=== PATIENT | female | born 1975 | race Caucasian/White ===

== ENCOUNTER → 2016-11-11 | Outpatient (CLI) | payer OTHER ==
[~2016-11-11] MED LIST: ACET-1256 PO; BUPR-79 PO; CEPH500C2 PO; GABA-113 PO; META-38 PO
== END | disposition home or self-care (01) ==
LOC: C.PAPS 12:57
PROVIDERS: ATTEND Physician Assistant
DX: Z12.4 Encounter for screening for malignant neoplasm of cervix (principal)

== ENCOUNTER → 2016-11-11 | Outpatient (CLI) | payer OTHER ==
--- NOTE | 2016-11-11 12:43 | MAMMOGRAPHY REPORT ---
BILATERAL DIGITAL SCREENING MAMMOGRAM TOMOSYNTHESIS WITH CAD: 11/11/2016 CLINICAL HISTORY: Routine screening. Patient has no complaints. TECHNIQUE: Breast tomosynthesis in addition to standard 2D mammography was performed. Current study was also evaluated with a Computer Aided Detection (CAD) system. COMPARISON: Comparison is made to exam dated: 11/10/2015 mammogram - [facility]. BREAST COMPOSITION: The tissue of both breasts is almost entirely fatty. FINDINGS: No suspicious masses, calcifications, or areas of architectural distortion are noted in e ither breast. There has been no significant interval change compared to prior exams. IMPRESSION: ACR BI-RADS CATEGORY 1: NEGATIVE There is no mammographic evidence of malignancy. A 1 year screening mammogram is recommended. The p atient will receive written notification of the results. Approximately 10% of breast cancers are not detected with mammography. A negative mammographic repor t should not delay biopsy if a clinically suggestive mass is present. Ariela Shipley M.D. ah/:11/11/2016 12:11:24 Aircraft Painter: Barbara NICHOLSON(Linda)(M), [facility] letter sent: Normal 1/2 BI-RADS Code: ACR BI-RADS Category 1: Negative
== END ==
LOC: C.MAMM 08:36
PROVIDERS: ATTEND Obstetrics & Gynecology
DX: Z12.31 Encounter for screening mammogram for malignant neoplasm of breast (principal)

== ENCOUNTER → 2017-10-28 | Outpatient (CLI) | payer OTHER ==
[2017-10-28 11:43] LABS: BASO % 0.7 %; BASO ABS # 0.05 K/uL (0-0.2); EOS % 4.2 %; EOS ABS # 0.32 K/uL (0-0.5); HEMATOCRIT 43.2 % (37-47); HEMOGLOBIN 14.6 g/dL (12.0-16.0); IG# 0.08 K/uL (0.00-0.02); LYMPH % 23.1 %; LYMPH ABS # 1.77 K/uL (1.2-3.4); MEAN CELL VOLUME 97.5 fL (80-100); MEAN CORPUSCULAR HGB CONC 33.8 g/dl (32-36); MONO % 7.3 %; MONO ABS # 0.56 K/uL (0.11-0.59); NEUT % 63.7 %; NEUT ABS # 4.87 K/uL (1.4-6.5); PLATELET COUNT 220 K/uL (130-400); RED CELL DISTRIBUTION WIDTH CV 12.3 % (11.5-14.5); RED CELL DISTRIBUTION WIDTH SD 43.8 fL (36.4-46.3); WHITE BLOOD COUNT 7.65 K/uL (4.8-10.8)
[2017-10-28 12:09] LABS: BLOOD UREA NITROGEN 13 mg/dl (7-18); CALCIUM 8.7 mg/dl (8.5-10.1); CARBON DIOXIDE 30 mmol/L (21-32); CREATININE 0.69 mg/dl (0.60-1.20); GLUCOSE 84 mg/dl (70-99); POTASSIUM 3.8 mmol/L (3.5-5.1); SODIUM 135 mmol/L (136-145)
== END | disposition home or self-care (01) ==
LOC: C.LAB 11:07
PROVIDERS: ATTEND Nurse Practitioner Adult Health
DX: I10 Essential (primary) hypertension (principal); R63.5 Abnormal weight gain; R53.83 Other fatigue; F41.8 Other specified anxiety disorders

== ENCOUNTER → 2018-01-11 | Outpatient (CLI) | payer OTHER ==
--- NOTE | 2018-01-15 12:41 | MAMMOGRAPHY REPORT ---
BILATERAL DIGITAL SCREENING MAMMOGRAM TOMOSYNTHESIS WITH CAD: 01/11/2018 CLINICAL HISTORY: Routine screening. Patient has no complaints. TECHNIQUE: Breast tomosynthesis in addition to standard 2D mammography was performed. Current study was also evaluated with a Computer Aided Detection (CAD) system. COMPARISON: Comparison is made to exams dated: 11/11/2016 mammogram and 11/10/2015 mammogram - [facility]. BREAST COMPOSITION: The tissue of both breasts is almost entirely fatty. FINDINGS: No suspicious masses, calcifications, or areas of architectural distortion are noted in ei ther breast. There has been no significant interval change compared to prior exams. IMPRESSION: ACR BI-RADS CATEGORY 1: NEGATIVE There is no mammographic evidence of malignancy. A 1 year screening mammogram is recommended. The pa tient will receive written notification of the results. Approximately 10% of breast cancers are not detected with mammography. A negative mammographic report should not delay biopsy if a clinically suggestive mass is present. Ariela Shipley M.D. ah/:01/11/2018 15:21:08 Compliance Coordinator: Bessy NICHOLSON(Linda)(Juan Ramon), [facility] letter sent: Normal 1/2 BI-RADS Code: ACR BI-RADS Category 1: Negative
== END | disposition home or self-care (01) ==
LOC: C.MAMM 14:15
PROVIDERS: ATTEND Obstetrics & Gynecology
DX: Z12.31 Encounter for screening mammogram for malignant neoplasm of breast (principal)

== ENCOUNTER 2025-07-19 19:29 | Observation (INO) ==
[2025-07-19] MEDS: SODIUM CHLORIDE 0.9% 1,000 ML IV SCH (20:07)
[2025-07-19] MEDS: ACETAMINOPHEN 1,000 MG/100 ML VIAL IV STA (20:08)
[2025-07-19] MEDS: ONDANSETRON INJ 2 MG/ML 2 ML VIAL IV STA (20:09)
[2025-07-19] MEDS: KETOROLAC TROMETHAMINE 15 MG/ML VIAL IV STA (20:10)
[2025-07-19] MEDS: dexAMETHasone**PF** 10 MG/ML VIAL IV ONE (20:12)
[2025-07-19 20:13] LABS: Hematocrit (blood only) 38.8 % (37.0-47.0); Hemoglobin 13.2 g/dl (12.0-16.0); Immature Granulocytes # (auto) 0.29 K/uL (0.01-0.20); Immature Granulocytes % (auto) 2.2 %; Mean Corpuscular Hemoglobin 32.5 pg (25.0-34.0); Mean Corpuscular Volume 95.6 fL (80.0-100.0); Platelet Count 322 K/uL (130-400); RDW Standard Deviation 42.1 fL (36.4-46.3); Red Blood Count 4.06 M/uL (4.20-5.40); White Blood Count 13.10 K/ul (4.8-10.8)
--- NOTE | 2025-07-19 20:19 | Emergency Department Note ---
Impression & Plan Peritonsillar abscess, Hypertension, Leukocytosis, Difficulty swallowing, Acute streptococcal pharyngitis ED Provider Note NAME: CAMILLE MICHAEL AGE: 49 SEX: F : 1975 ARRIVES VIA: Walk-In INFORMANT: [Patient] ED PROVIDER(S): [Gigi Irizarry MD] CHIEF COMPLAINT: Illness HISTORY OF PRESENT ILLNESS: The patient is a 49-year-old female who thought she had a cold and a bit of a sore throat over a week ago. Things seemed to be getting better but, last evening she began having increased pain in the throat especially on the right- hand side. Things have progressed to the point where she has a very hard time swallowing. She is concerned that she may have a peritonsillar abscess as she has had an abscess in the past. There has been no cough or shortness of breath. No diarrhea or vomiting. She has not suffered recent trauma. PMHx/PSHx/Social Hx: See Below PHYSICAL EXAM: GENERAL: Patient is in no acute distress. HEENT: No acute trauma, normocephalic atraumatic, mucous membranes moist, no nasal congestion. The patient does have bilateral throat erythema, there is some fullness on the right with some soft tissue edema, no uvular edema. Right TM is clear without signs of infection. Trismus is present. NECK: No stridor, moderate bilateral anterior cervical adenopathy, no meningismus, trachea is midline. LUNGS: Clear to auscultation bilaterally, no wheeze, no rhonchi, breath sounds equal. HEART: Mildly tachycardic, regular rhythm, no murmurs. ABDOMEN: Soft, nontender, no peritonitis. EXTREMITIES: No cyanosis, full range of motion of all the joints without pain or difficulty. NEUROLOGIC: Oriented x 3, no acute motor or sensory deficits, no focal weakness. SKIN: No jaundice, no diaphoresis. DIFFERENTIAL DIAGNOSIS: Peritonsillar abscess, tonsillar cellulitis, strep pharyngitis, among others. EMERGENCY DEPARTMENT PROCEDURES: MEDICAL DECISION MAKING: There is a leukocytosis at 13,000, this would be consistent with infection. There is a normal hemoglobin and platelet count. A bandemia is present. There is no renal failure or significant electrolyte abnormality. No concerning liver enzyme elevation. testing is negative. Respiratory bio fire is negative. Strep testing is positive. Soft tissue neck CT shows a forming abscess in the right peritonsillar space. On exam, the patient appeared uncomfortable, she had cervical adenopathy. She was hypertensive. The patient was given IV labetalol for her blood pressure elevation. She was given a dose of oral losartan as, she had missed this medication today because of her trouble swallowing. Patient was given IV Decadron, IV saline, IV Toradol, IV Tylenol and IV Unasyn. She was given IV Tylenol. Patient does feel improved, her blood pressure is improving. Given the findings, given her presentation, given the difficulty swallowing and her hypertension, I do think admission for IV antibiotics is warranted. She can be seen by ENT in the morning, possibly she would meet criteria for abscess drainage. I did speak with the patient and case management, the on-call hospitalist was consulted. Prior/Outside records/notes reviewed: None ECG per my interpretation: Indication was tachycardia. The ECG shows a sinus tachycardia with a rate of 106. There is no ST elevation, no PVCs. The QTc is 433. Continuous Cardiac Monitoring per my interpretation: An order was placed for continuous cardiac monitoring. The monitor shows a rate of 118 with sinus tachycardia. Imaging/x-ray results per my interpretation: Chronic Medical/Social conditions affecting care: None Care/Management discussed with: Case management and the on-call hospitalist. Level of care consideration(s): After review of the information above and other included data: --I believe the patient requires escalation of care to admission DISPOSITION: Admission Past Med/Surg History Problem List (Updated 07/20/25 @ 11:53 by Gigi Irizarry MD) Acute streptococcal pharyngitis (Acute) Difficulty swallowing (Acute) Leukocytosis (Acute) Hypertension (Acute) Peritonsillar abscess (Acute) Throat pain Strep pharyngitis Elevated systolic blood pressure reading with diagnosis of hypertension Phlegmon Peritonsillar abscess Encounter for health maintenance examination Encounter for annual routine gynecological examination Paresthesia of left upper extremity Cervical radiculopathy Myofascial pain Palpitations (Acute) Morbid obesity (Acute) Migraine headache (Acute) Hypertension (Acute) GERD (gastroesophageal reflux disease) (Acute) Disc degeneration, lumbar (Acute) Depression with anxiety (Acute) Arm paresthesia, right Carpal tunnel syndrome Anxiety Encounter for pre-operative examination Depression Hyperlipidemia Hypertension Vitamin D deficiency Status post gastric banding Screening, deficiency anemia, iron Colon cancer screening Abdominal pannus Medical History Hyperlipidemia no meds GERD (gastroesophageal reflux disease) controlled per pt Carpal tunnel syndrome Depression Slow to wake up after anesthesia Nausea and vomiting after administration of anesthetic agent History of COVID-19 DX'D THRU HOME TEST-09/2020-LOSS OF TASTE-SYMPTOMS RESOLVED Migraine HX Degenerative disc disease History of diverticulitis Anemia HX-BORDERLINE Hypertension Surgical History S/P panniculectomy Status following gastric banding surgery for weight loss History of esophagogastroduodenoscopy (EGD) History of ERCP History of anesthesia reaction S/P debridement Fusion of spine History of colonoscopy History of partial hysterectomy History of tooth extraction [place] teeth removed Hx of cholecystectomy Family History Mother Multiple gestation Heart disease Myocardial infarction Hypertension Lung cancer Sister Breast cancer Thyroid disorder Asthma Family history of reaction to anesthesia Father Hypertension Daughter Methicillin resistant Staphylococcus aureus infection as the cause of diseases classified elsewhere Aunt Ovarian cancer Breast cancer Denies family history of Prostate cancer Colorectal cancer Social History Smoking Status: Current some day smoker Tobacco Type: E-cigarettes / Vaping Age Started Using Tobacco: 20; Age Quit Using Tobacco: 43; packs per day: 1; Second Hand Exposure: No; Do You Dip or Chew Tobacco: No; Hx Alcohol Use: No Hx Substance Use: No Preferred Language: Spanish Communication Ability: Effective Visual Impairment: No Limitations Hearing Ability: Normal Physicians And Surgeons Required: No Beliefs That Will Affect Care: None marital status: Current Living Situation: Significant Other Current Living Situation Comment: LIVES WITH SPOUSE, 2 KIDS current occupational status: employed 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 Other Information That Helps Us Care for You: No Feels Safe at Home: Yes Safety Concerns: Feels Safe At This Time Childhood Exposure to Second-Hand Smoke: Yes caffeine: No during the past year weight has: remained stable Dental Care, Regularly: Yes Physical Activity Frequency: 3-4 Times per Week Seatbelt Use: always Sunscreen Use: Yes Assistive Devices: Glasses Allergies Allergies Allergy/AdvReac Type Severity Reaction Status Date / Time No Known Allergies Allergy Verified 06/17/25 13:01 Home Meds Home Medications Medication Instructions Recorded Confirmed ergocalciferol (vitamin D2) 1,250 1,250 mcg PO QAM 04/22/20 07/19/25 mcg (50,000 unit) capsule (Vitamin D2) calcium carbonate (Calcium 500) 500 mg PO QPM 03/10/21 07/19/25 cyanocobalamin (vitamin B-12) 100 mcg IM DIRECTED 10/21/21 07/19/25 1,000 mcg/mL injection solution semaglutide (weight loss) 1.7 1.7 ml subcut WK 05/23/23 07/19/25 mg/0.75 mL subcutaneous pen injector (Wegovy) Previous Rx's Medication Instructions Recorded valsartan 80 mg tablet 80 mg PO DAILY #90 tabs 12/24/24 duloxetine 60 mg capsule,delayed 60 mg PO QAM #30 caps 05/13/25 release Results & Data (ED) Vital Signs Vital Signs - 24 hr 07/19/25 19:31 07/19/25 20:46 07/19/25 20:48 Temperature 36.2 C L Temperature Source Temporal Artery Scan Pulse Rate 118 H 102 H 96 H Pulse Rate from SpO2 Sensor 96 H Respiratory Rate 16 22 Blood Pressure 216/123 H Blood Pressure Mean 154 Blood Pressure Position Sitting Pulse Oximetry 98 99 Oxygen Delivery Method Room Air Sepsis Recent Fever Within 48 Hours No Sepsis New/Unexplained Change in Mental Status No Sepsis Action Taken by Nursing No Action Required 07/19/25 20:54 07/19/25 21:15 07/19/25 21:51 Temperature Temperature Source Pulse Rate 101 H 99 H 104 H Pulse Rate from SpO2 Sensor 102 H 98 H 104 H Respiratory Rate 18 20 23 Blood Pressure Blood Pressure Mean Blood Pressure Position Pulse Oximetry 98 95 95 Oxygen Delivery Method Sepsis Recent Fever Within 48 Hours Sepsis New/Unexplained Change in Mental Status Sepsis Action Taken by Nursing 07/19/25 22:00 07/19/25 22:01 07/19/25 22:01 Temperature Temperature Source Pulse Rate 105 H Pulse Rate from SpO2 Sensor 106 H Respiratory Rate 22 Blood Pressure 183/145 H 183/145 H Blood Pressure Mean 154 154 Blood Pressure Position Pulse Oximetry 97 Oxygen Delivery Method Sepsis Recent Fever Within 48 Hours Sepsis New/Unexplained Change in Mental Status Sepsis Action Taken by Nursing 07/19/25 22:01 07/19/25 22:15 07/19/25 22:17 Temperature Temperature Source Pulse Rate 115 H 107 H Pulse Rate from SpO2 Sensor Respiratory Rate 19 Blood Pressure 183/145 H 194/121 H Blood Pressure Mean 154 Blood Pressure Position Pulse Oximetry 98 Oxygen Delivery Method Room Air Sepsis Recent Fever Within 48 Hours Sepsis New/Unexplained Change in Mental Status Sepsis Action Taken by Nursing 07/19/25 22:18 07/19/25 22:19 07/19/25 22:27 Temperature Temperature Source Pulse Rate 109 H 100 H Pulse Rate from SpO2 Sensor 109 H 100 H Respiratory Rate 14 16 Blood Pressure 194/121 H Blood Pressure Mean 148 Blood Pressure Position Pulse Oximetry 96 97 Oxygen Delivery Method Sepsis Recent Fever Within 48 Hours Sepsis New/Unexplained Change in Mental Status Sepsis Action Taken by Nursing 07/19/25 22:30 07/19/25 22:30 07/19/25 22:30 Temperature Temperature Source Pulse Rate Pulse Rate from SpO2 Sensor Respiratory Rate Blood Pressure 199/116 H 199/116 H 199/116 H Blood Pressure Mean 142 142 142 Blood Pressure Position Pulse Oximetry Oxygen Delivery Method Sepsis Recent Fever Within 48 Hours Sepsis New/Unexplained Change in Mental Status Sepsis Action Taken by Nursing 07/19/25 22:30 07/19/25 22:36 07/19/25 22:39 Temperature Temperature Source Pulse Rate 100 H 101 H Pulse Rate from SpO2 Sensor 103 H 99 H Respiratory Rate 16 11 L Blood Pressure 210/126 H Blood Pressure Mean 154 Blood Pressure Position Pulse Oximetry 95 94 Oxygen Delivery Method Sepsis Recent Fever Within 48 Hours Sepsis New/Unexplained Change in Mental Status Sepsis Action Taken by Nursing 07/19/25 22:39 07/19/25 22:45 07/19/25 23:00 Temperature Temperature Source Pulse Rate 104 H Pulse Rate from SpO2 Sensor 104 H Respiratory Rate 22 Blood Pressure 210/126 H 181/109 H Blood Pressure Mean 154 139 Blood Pressure Position Pulse Oximetry 93 Oxygen Delivery Method Sepsis Recent Fever Within 48 Hours Sepsis New/Unexplained Change in Mental Status Sepsis Action Taken by Nursing 07/19/25 23:00 Temperature Temperature Source Pulse Rate 102 H Pulse Rate from SpO2 Sensor 102 H Respiratory Rate 18 Blood Pressure Blood Pressure Mean Blood Pressure Position Pulse Oximetry 96 Oxygen Delivery Method Sepsis Recent Fever Within 48 Hours Sepsis New/Unexplained Change in Mental Status Sepsis Action Taken by [facility] Medications Current Medication List: was personally reviewed by me Laboratory Data Attestation: I reviewed the patient's lab results. 07/20/25 04:01 07/20/25 04:01 Lab Results 07/19/25 07/19/25 Range/Units 19:46 20:01 WBC 13.10 H (4.8-10.8) K/ul RBC 4.06 L (4.20-5.40) M/uL Hgb 13.2 (12.0-16.0) g/dl Hct 38.8 (37.0-47.0) % MCV 95.6 (80.0-100.0) fL MCH 32.5 (25.0-34.0) pg MCHC 34.0 (32.0-36.0) g/dL RDW Std Deviation 42.1 (36.4-46.3) fL RDW Coeff of Rosaura 11.9 (11.5-14.5) % Plt Count 322 (130-400) K/uL MPV 8.8 L (9.4-12.4) fL Immature Gran % (Auto) 2.2 % Neut % (Auto) 79.3 % Lymph % (Auto) 11.3 % [place] % (Auto) 5.5 % Eos % (Auto) 1.2 % Baso % (Auto) 0.5 % Neut # (Auto) 10.39 H (1.40-6.50) K/uL Lymph # (Auto) 1.48 (1.20-3.40) K/uL [place] # (Auto) 0.72 H (0.11-0.59) K/uL Eos # (Auto) 0.16 (0.00-0.50) K/uL Baso # (Auto) 0.06 (0.00-0.20) K/uL Immature Gran # (Auto) 0.29 H (0.01-0.20) K/uL Sodium 139 (136-145) mmol/L Potassium 3.8 (3.5-5.1) mmol/L Chloride 100 (98-107) mmol/L Carbon Dioxide 30 (21-32) mmol/L Anion Gap 9 (3-11) BUN 14 (6-23) mg/dl Creatinine 0.88 (0.6-1.2) mg/dl Est Cr Clr Drug Dosing 79.3 ml/min eGFR 80.51 BUN/Creatinine Ratio 15.9 (10-20) Glucose 87 (70-99(Fasting)) mg/dl Calcium 9.4 (8.6-10.3) mg/dl Total Bilirubin 0.8 (0.2-1.0) mg/dl AST 18 (13-39) U/L ALT 17 (7-52) U/L Alkaline Phosphatase 83 (34-104) U/L Total Protein 7.7 (6.0-8.3) gm/dl Albumin 4.0 (3.4-5.0) gm/dl Globulin 3.7 (2.5-4.0) gm/dl Albumin/Globulin Ratio 1.1 (0.9-2) HCG, Qual Negative (Negative) Adenovirus (PCR) Not Detected (NotDetected) B. pertussis DNA (PCR) Not Detected (NotDetected) B.parapertussis DNA PCR Not Detected (NotDetected) C. pneumoniae DNA (PCR) Not Detected (NotDetected) Coronavirus OC43 (PCR) Not Detected (NotDetected) Coronavirus HKU1 (PCR) Not Detected (NotDetected) Coronavirus 229E (PCR) Not Detected (NotDetected) SARS-CoV-2 (PCR) Not Detected (NotDetected) Coronavirus NL63 (PCR) Not Detected (NotDetected) Human Metapneumovir PCR Not Detected (NotDetected) Influenza Type A (PCR) Not Detected (NotDetected) Influenza Type B (PCR) Not Detected (NotDetected) M. pneumoniae (PCR) Not Detected (NotDetected) Parainfluenza 1 (PCR) Not Detected (NotDetected) Parainfluenza 2 (PCR) Not Detected (NotDetected) Parainfluenza 3 (PCR) Not Detected (NotDetected) Parainfluenza 4 (PCR) Not Detected (NotDetected) RSV (PCR) Not Detected (NotDetected) Entero/Rhino (PCR) Not Detected (NotDetected) Group A Strep (PCR) DETECTED A (NotDetected) Administered Medications Ampicillin Sodium/Sulbactam Sodium (Unasyn) 3,000 mg in 100 mls @ 200 mls/hr IV Q6H SILVANA Stop: 10/08/25 01:59 Last Infusion: 07/20/25 08:55 Dose: Infused Documented By: [email or web address] Admin: 07/20/25 07:55 Dose: 200 mls/hr Documented By: amaristeo Infusion: 07/20/25 03:35 Dose: Infused Documented By: Admin: 07/20/25 01:50 Dose: 200 mls/hr Documented By: OUMOU Pantoprazole Sodium (Protonix) 40 mg in 10 mls @ 5 mls/min IV BID SILVANA Stop: 08/18/25 23:52 Last Admin: 07/20/25 09:53 Dose: 5 mls/min Documented By: leonila Admin: 07/20/25 00:22 Dose: 5 mls/min Documented By: marimar Dexamethasone 10 mg/ Syringe 2.5 mls @ 1 mls/min IV QID SILVANA Stop: 08/19/25 07:14 Last Admin: 07/20/25 07:52 Dose: 1 mls/min Documented By: leonila Discontinued Medications Dexamethasone Sodium Phosphate (DexamethasonePf 10 Mg/Ml Vial) 10 mg IV NOW ONE Stop: 07/19/25 19:48 Last Admin: 07/19/25 20:12 Dose: 10 mg Documented By: mldesi Sodium Chloride (Nss) 1,000 mls @ 999 mls/hr IV .Q1H1M SILVANA Stop: 07/19/25 21:00 Last Infusion: 07/19/25 21:08 Dose: Infused Documented By: mldesi Admin: 07/19/25 20:07 Dose: 999 mls/hr Documented By: mldesi Acetaminophen (Ofirmev) 1,000 mg in 100 mls @ 400 mls/hr IV NOW STA Stop: 07/19/25 20:01 Last Infusion: 07/19/25 20:30 Dose: Infused Documented By: mls Admin: 07/19/25 20:08 Dose: 400 mls/hr Documented By: mldesi Ampicillin Sodium/Sulbactam Sodium (Unasyn) 3,000 mg in 100 mls @ 200 mls/hr IV NOW STA Stop: 07/19/25 20:21 Last Infusion: 07/19/25 22:29 Dose: Infused Documented By: mls Admin: 07/19/25 20:29 Dose: 200 mls/hr Documented By: marimar Lactated Ringer's (Lr) 1,000 mls @ 125 mls/hr IV .Q8H SILVANA Stop: 07/20/25 07:52 Last Infusion: 07/20/25 09:07 Dose: Infused Documented By: leonila Admin: 07/20/25 00:19 Dose: 125 mls/hr Documented By: marimar Ioversol (Optiray 320 100ml) 90 ml IV ONCE ONE Stop: 07/19/25 21:27 Last Admin: 07/19/25 21:26 Dose: 90 ml Documented By: ALEJANDRO Ketorolac Tromethamine (Ketorolac Tromethamine 15 Mg/Ml Vial) 15 mg IV NOW STA Stop: 07/19/25 19:48 Last Admin: 07/19/25 20:10 Dose: 15 mg Documented By: marimar Labetalol HCl (Labetalol Hcl Iv 5 Mg/Ml 20ml) 10 mg IV NOW STA Stop: 07/19/25 22:04 Last Admin: 07/19/25 22:17 Dose: 10 mg Documented By: marimar Lorazepam (Lorazepam 2 Mg/1 Ml Vial) 0.5 mg IV NOW STA Stop: 07/19/25 23:16 Last Admin: 07/19/25 23:23 Dose: 0.5 mg Documented By: marimar Ondansetron HCl (Ondansetron Inj 2 Mg/Ml 2 Ml Vial) 4 mg IV NOW STA Stop: 07/19/25 19:48 Last Admin: 07/19/25 20:09 Dose: 4 mg Documented By: marimar Valsartan (Valsartan 80 Mg Tab) 80 mg PO NOW STA Stop: 07/19/25 22:04 Last Admin: 07/19/25 22:23 Dose: 80 mg Documented By: marimar Discharge Plan Visit Data Chief Complaint: Illness Stated Complaint: UNABLE TO SWALLOW THROAT PAIN EAR PAIN ED Provider: Gigi Irizarry Discharge Problem: Peritonsillar abscess, Hypertension, Leukocytosis, Difficulty swallowing, Acute streptococcal pharyngitis Patient Disposition: Admitted As Inpatient Condition: Fair Discharge Instructions Interventions: ED Discharge Assessment Last Done: 07/19/25 23:54 Discharge Problem: Hypertension Qualifiers: Hypertension type: unspecified Qualified Code(s): I10 - Essential (primary) hypertension Leukocytosis Qualifiers: Leukocytosis type: unspecified Qualified Code(s): D72.829 - Elevated white blood cell count, unspecified Difficulty swallowing Qualifiers: Dysphagia type: unspecified Qualified Code(s): R13.10 - Dysphagia, unspecified
[2025-07-19] MEDS: AMPICILLIN/SULBACTAM SOD 3,000 MG/100 ML BAG IV STA (20:29)
[2025-07-19 20:31] LABS: Pregnancy Test, Serum Negative (Negative)
[2025-07-19 20:33] LABS: Alanine Aminotransferase 17.0 U/L (7-52); Albumin Globulin Ratio 1.1 (0.9-2); Albumin Level 4.0 gm/dl (3.4-5.0); Alkaline Phosphatase 83.0 U/L (34-104); Anion Gap 9.0 (3-11); Bilirubin,Total 0.8 mg/dl (0.2-1.0); Blood Urea Nitrogen 14.0 mg/dl (6-23); Calcium 9.4 mg/dl (8.6-10.3); Carbon Dioxide 30.0 mmol/L (21-32); Chloride 100.0 mmol/L (98-107); Creatinine Clr Calc Pharmacy 79.3 ml/min; Globulin 3.7 gm/dl (2.5-4.0); Glucose 87.0 mg/dl (70-99(Fasting)); Potassium 3.8 mmol/L (3.5-5.1); Sodium 139.0 mmol/L (136-145); Total Protein 7.7 gm/dl (6.0-8.3)
[2025-07-19 20:58] LABS: Chlamydia pneumoniae PCR Not Detected (NotDetected); Coronavirus 229E PCR Not Detected (NotDetected); Coronavirus CoV-2 (COVID19)PCR Not Detected (NotDetected); Coronavirus HKU1 PCR Not Detected (NotDetected); Coronavirus NL63 PCR Not Detected (NotDetected); Coronavirus OC43PCR Not Detected (NotDetected); Human Metapneumovirus PCR Not Detected (NotDetected); Parainfluenza Virus 1 PCR Not Detected (NotDetected); Parainfluenza Virus 2 PCR Not Detected (NotDetected); Parainfluenza Virus 3 PCR Not Detected (NotDetected); Parainfluenza Virus 4 PCR Not Detected (NotDetected); Respiratory Syncytial VirusPCR Not Detected (NotDetected); Rhinovirus/Enterovirus PCR Not Detected (NotDetected)
[2025-07-19] MEDS: OPTIRAY 320 100ml IV ONE (21:26)
--- NOTE | 2025-07-19 21:50 | CT Scan Report ---
Exam(s): CT NECK SOFT TISSUE With Contrast IV Amt: 90 ml optiray 320 EXAM: CT Neck With Intravenous Contrast CLINICAL HISTORY: Reason for exam: right pain, possible abscess. TECHNIQUE: Axial computed tomography images of the neck with intravenous contrast. CTDI is 16.45 mGy and DLP is 371.44 mGy-cm. Automated exposure control was utilized for the study. A dose lowering technique was utilized adhering to the principles of ALARA. CONTRAST: Patient received 90 ml optiray 320 of IV contrast COMPARISON: No relevant prior studies available. FINDINGS: Oropharynx: Unremarkable. No significant tonsillar enlargement. No peritonsillar abscess. Hypopharynx: Unremarkable. Larynx: The epiglottis is within normal limits. There is mild edema involving the right aryepiglottic fold. Trachea: Unremarkable. Retropharyngeal space: Unremarkable. Submandibular/parotid glands: Unremarkable. Glands are normal in size. Thyroid: Unremarkable. No enlarged or calcified nodules. Bones/joints: No acute fracture. Soft tissues: There is an ill-defined 1.4 cm area of decreased density in the right parapharyngeal soft tissues consistent with phlegmon. No well-formed abscess is identified. Vasculature: No acute findings. Lymph nodes: Right level two lymph node measures 10 mm short axis diameter which is borderline enlarged. Lung apices: Unremarkable as visualized. IMPRESSION: There is an ill-defined 1.4 cm area of decreased density in the right parapharyngeal soft tissues consistent with phlegmon. No well-formed abscess is identified. Electronically signed by: Gus Torres MD 07/19/25 21:49 PM
[2025-07-19] MEDS: LABETALOL HCL IV 5 MG/ML 20ML IV STA (22:17)
[2025-07-19] MEDS: VALSARTAN 80 MG TAB PO STA (22:23)
--- NOTE | 2025-07-19 23:11 | History & Physical Report ---
Date of Service July 19, 2025 Assessment & Plan (1) Peritonsillar abscess: (2) Phlegmon: (3) Elevated systolic blood pressure reading with diagnosis of hypertension: Plan The patient is a 49-year-old female with past medical history including paresthesia of left upper extremity, cervical radiculopathy, myofascial pain, urinary tract infection, GERD, hypertension, lumbar degenerative disc disease, depression with anxiety, vitamin D deficiency, and status post gastric banding. The patient presents to the emergency department with report that she has not she had a cold and sore throat about a week ago. She had been doing somewhat better, but then last evening she began to have worsening pain in her throat, in particular on the right side, and had more difficulty swallowing, including her secretions. The symptoms are similar to peritonsillar abscesses which she has had in the past, and she is concerned there may be a recurrence. Workup in the emergency department included a respiratory bio fire test which primarily was group A strep positive. CT scan of the soft tissue of the neck showed a right sided parapharyngeal phlegmon 1.4 cm in size. From the ED the patient received normal saline 1 L bolus, Zofran 4 mg IV, Toradol 15 mg IV, Tylenol 1 g IV, dexamethasone 10 mg IV, Unasyn 3 g IV, labetalol 10 mg IV, and valsartan 80 mg x 1. Due to elevated blood pressure, and abnormal imaging as noted, patient [facility]. Right peritonsillar/parapharyngeal abscess phlegmon/group A strep- Continue Unasyn 3 g IV every 6 hours begun in the ED NPO Given dexamethasone 10 mg IV in the ED continue 6 mg IV twice daily Zofran 4 mg IV every 6 hours as needed Pantoprazole 40 mg IV daily LR 125 mL/h x 1 L Tylenol 1 g IV every 8 hours as needed for mild pain or fever Morphine sulfate 2 mg IV every 3 hours as needed for moderate pain Morphine sulfate 4 mg IV every 3 hours as needed for severe pain ENT Dr. Canas has been contacted by the ED, and will see the patient in the a.m. Consult was placed Elevated blood pressure with a diagnosis of hypertension- Patient did not take her valsartan this morning Patient did receive labetalol 10 mg IV and valsartan 80 mg p.o. from the ED, without significant change in blood pressure readings Blood pressure increases likely secondary to anxiety, she admits to being an issue right now in ED Anxiety and depression- Give lorazepam 0.5 mg IV now, and if improved, will give lorazepam 0.5 mg IV every 8 hours as needed Hold duloxetine for now, until able to take p.o. History of Present Illness Chief Complaint: The patient presents to the emergency department with report that she has not she had a cold and sore throat about a week ago. She had been doing somewhat better, but then last evening she began to have worsening pain in her throat, in particular on the right side, and had more difficulty swallowing, including her secretions. The symptoms are similar to peritonsillar abscesses which she has had in the past, and she is concerned there may be a recurrence. Workup in the emergency department included a respiratory bio fire test which primarily was group A strep positive. CT scan of the soft tissue of the neck showed a right sided parapharyngeal phlegmon 1.4 cm in size. From the ED the patient received normal saline 1 L bolus, Zofran 4 mg IV, Toradol 15 mg IV, Tylenol 1 g IV, dexamethasone 10 mg IV, Unasyn 3 g IV, labetalol 10 mg IV, and valsartan 80 mg x 1. Due to elevated blood pressure, and abnormal imaging as noted, patient was referred for evaluation for admission and treatment to the [facility] service Primary Care Provider: KRIS Burch The patient is a 49-year-old female with past medical history including paresthesia of left upper extremity, cervical radiculopathy, myofascial pain, urinary tract infection, GERD, hypertension, lumbar degenerative disc disease, depression with anxiety, vitamin D deficiency, and status post gastric banding. The patient presents to the emergency department with report that she has not she had a cold and sore throat about a week ago. She had been doing somewhat better, but then last evening she began to have worsening pain in her throat, in particular on the right side, and had more difficulty swallowing, including her secretions. The symptoms are similar to peritonsillar abscesses which she has had in the past, and she is concerned there may be a recurrence. Workup in the emergency department included a respiratory bio fire test which primarily was group A strep positive. CT scan of the soft tissue of the neck showed a right sided parapharyngeal phlegmon 1.4 cm in size. From the ED the patient received normal saline 1 L bolus, Zofran 4 mg IV, Toradol 15 mg IV, Tylenol 1 g IV, dexamethasone 10 mg IV, Unasyn 3 g IV, labetalol 10 mg IV, and valsartan 80 mg x 1. Due to elevated blood pressure, and abnormal imaging as noted, patient was [facility] Allergies Allergy/AdvReac Type Severity Reaction Status Date / Time No Known Allergies Allergy Verified 06/17/25 13:01 Home Medications Medication Instructions Recorded Confirmed Type ergocalciferol (vitamin D2) 1,250 1,250 mcg PO QAM 04/22/20 07/19/25 History mcg (50,000 unit) capsule (Vitamin D2) calcium carbonate (Calcium 500) 500 mg PO QPM 03/10/21 07/19/25 History cyanocobalamin (vitamin B-12) 100 mcg IM DIRECTED 10/21/21 07/19/25 History 1,000 mcg/mL injection solution semaglutide (weight loss) 1.7 1.7 ml subcut WK 05/23/23 07/19/25 History mg/0.75 mL subcutaneous pen injector (Wegovy) valsartan 80 mg tablet 80 mg PO DAILY #90 tabs 12/24/24 07/19/25 Rx duloxetine 60 mg capsule,delayed 60 mg PO QAM #30 caps 05/13/25 07/19/25 Rx release Past Med/Surg History Problem List (Updated 07/20/25 @ 02:48 by Satish Weinstein MD) Elevated systolic blood pressure reading with diagnosis of hypertension Phlegmon Peritonsillar abscess Encounter for health maintenance examination Encounter for annual routine gynecological examination Paresthesia of left upper extremity Cervical radiculopathy Myofascial pain Palpitations (Acute) Morbid obesity (Acute) Migraine headache (Acute) Hypertension (Acute) GERD (gastroesophageal reflux disease) (Acute) Disc degeneration, lumbar (Acute) Depression with anxiety (Acute) Arm paresthesia, right Carpal tunnel syndrome Anxiety Encounter for pre-operative examination Depression Hyperlipidemia Hypertension Vitamin D deficiency Status post gastric banding Screening, deficiency anemia, iron Colon cancer screening Abdominal pannus Medical History Hyperlipidemia GERD (gastroesophageal reflux disease) Carpal tunnel syndrome Depression Slow to wake up after anesthesia Nausea and vomiting after administration of anesthetic agent History of COVID-19 Migraine Degenerative disc disease History of diverticulitis Anemia Hypertension Surgical History S/P panniculectomy Status following gastric banding surgery for weight loss History of esophagogastroduodenoscopy (EGD) History of ERCP History of anesthesia reaction S/P debridement Fusion of spine History of colonoscopy History of partial hysterectomy History of tooth extraction [place] teeth removed Hx of cholecystectomy Family History Mother Multiple gestation Heart disease Myocardial infarction Hypertension Lung cancer Sister Breast cancer Thyroid disorder Asthma Family history of reaction to anesthesia Father Hypertension Daughter Methicillin resistant Staphylococcus aureus infection as the cause of diseases classified elsewhere Aunt Ovarian cancer Breast cancer Denies family history of Prostate cancer Colorectal cancer Social History Smoking Status: Current every day smoker Tobacco Type: Cigarettes and E-cigarettes / Vaping Age Started Using Tobacco: 20; Age Quit Using Tobacco: 43; packs per day: 1; Second Hand Exposure: No; Do You Dip or Chew Tobacco: No; Hx Alcohol Use: No Hx Substance Use: No Preferred Language: German Communication Ability: Effective Visual Impairment: No Limitations Hearing Ability: Normal Leadership Development Manager Required: No Beliefs That Will Affect Care: None marital status: Current Living Situation: Spouse Current Living Situation Comment: LIVES WITH SPOUSE, 2 KIDS current occupational status: employed 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 Feels Safe at Home: Yes Childhood Exposure to Second-Hand Smoke: Yes caffeine: No during the past year weight has: remained stable Dental Care, Regularly: Yes Physical Activity Frequency: 3-4 Times per Week Seatbelt Use: always Sunscreen Use: Yes Assistive Devices: Glasses Review of Systems Review of Systems: The patient denies chest pain, palpitations, shortness of breath, dyspnea on e xertion, cough, lower extremity swelling, fevers, chills, sweats fatigue, nausea, vomiting, diarrhea , constipation, abdominal pain, pelvic pain, blood in urine or stool, dysuria, urinary frequency or urgency, lightheadedness, dizziness, headache, memory loss, loss of consciousness, rash, abnormal bruising or bleeding, imbalance, focal or generalized weakness, numbness or tingling in arms or legs, generalized arthralgias or myalgias, back or neck pain, or night sweats. The review of systems is otherwise negative other than for that already noted above, and at least 10 systems have been reviewed. Physical Exam Physical Exam: The patient is awake, alert and oriented 3, well developed and well nourished, normocephalic and atraumatic, lying in bed and in no acute distress. HEENT--PERRL, EOMI, mucous membranes and oropharynx with moderate erythema right parapharyngeal and tonsillar area Neck--supple. No JVD. No bruits. Thyroid normal, trachea midline, no adenopathy. Heart--normal S1 and S2. No murmurs, rubs or gallops. Lungs--clear bilaterally, no respiratory distress, no accessory muscle use. Abdomen--normal bowel sounds and soft. Nontender. Nondistended, no hernias or masses, no organomegaly. Extremities--no cyanosis or clubbing. No edema. There are good distal pulses b/l. Dermatologic--normal skin turgor, normal color, no abnormal lymph nodes, no rash. Neurologic--cranial nerves II through XII grossly intact. Rheumatologic--normal range of motion. Psychiatric--normal affect. Results & Data Results & Data Vital Signs (Past 12 Hours) Vital Signs Temp Pulse Resp BP Pulse Ox O2 Del Method 07/19/25 22:45 104 H 22 93 07/19/25 22:39 210/126 H 07/19/25 22:39 210/126 H 07/19/25 22:36 101 H 11 L 94 07/19/25 22:30 100 H 16 95 07/19/25 22:30 199/116 H 07/19/25 22:30 199/116 H 07/19/25 22:30 199/116 H 07/19/25 22:27 100 H 16 97 07/19/25 22:19 194/121 H 07/19/25 22:18 109 H 14 96 07/19/25 22:17 107 H 194/121 H 07/19/25 22:15 115 H 19 98 Room Air 07/19/25 22:01 183/145 H 07/19/25 22:01 183/145 H 07/19/25 22:01 183/145 H 07/19/25 22:00 105 H 22 97 07/19/25 21:51 104 H 23 95 07/19/25 21:15 99 H 20 95 07/19/25 20:54 101 H 18 98 07/19/25 20:48 96 H 22 99 07/19/25 20:46 102 H 07/19/25 19:31 36.2 C L 118 H 16 216/123 H 98 Room Air Laboratory Results Laboratory Results WBC 13.10 K/ul (4.8-10.8) H 07/19/25 20:01 RBC 4.06 M/uL (4.20-5.40) L 07/19/25 20:01 Hgb 13.2 g/dl (12.0-16.0) 07/19/25 20:01 Hct 38.8 % (37.0-47.0) 07/19/25 20:01 MCV 95.6 fL (80.0-100.0) 07/19/25 20:01 MCH 32.5 pg (25.0-34.0) 07/19/25 20:01 MCHC 34.0 g/dL (32.0-36.0) 07/19/25 20:01 RDW Std Deviation 42.1 fL (36.4-46.3) 07/19/25 20:01 RDW Coeff of Rosaura 11.9 % (11.5-14.5) 07/19/25 20:01 Plt Count 322 K/uL (130-400) 07/19/25 20:01 MPV 8.8 fL (9.4-12.4) L 07/19/25 20:01 Immature Gran % (Auto) 2.2 % 07/19/25 20:01 Neut % (Auto) 79.3 % 07/19/25 20:01 Lymph % (Auto) 11.3 % 07/19/25 20:01 [place] % (Auto) 5.5 % 07/19/25 20:01 Eos % (Auto) 1.2 % 07/19/25 20:01 Baso % (Auto) 0.5 % 07/19/25 20:01 Neut # (Auto) 10.39 K/uL (1.40-6.50) H 07/19/25 20:01 Lymph # (Auto) 1.48 K/uL (1.20-3.40) 07/19/25 20:01 [place] # (Auto) 0.72 K/uL (0.11-0.59) H 07/19/25 20:01 Eos # (Auto) 0.16 K/uL (0.00-0.50) 07/19/25 20:01 Baso # (Auto) 0.06 K/uL (0.00-0.20) 07/19/25 20:01 Immature Gran # (Auto) 0.29 K/uL (0.01-0.20) H 07/19/25 20:01 Sodium 139 mmol/L (136-145) 07/19/25 20:01 Potassium 3.8 mmol/L (3.5-5.1) 07/19/25 20:01 Chloride 100 mmol/L (98-107) 07/19/25 20:01 Carbon Dioxide 30 mmol/L (21-32) 07/19/25 20:01 Anion Gap 9 (3-11) 07/19/25 20:01 BUN 14 mg/dl (6-23) 07/19/25 20:01 Creatinine 0.88 mg/dl (0.6-1.2) 07/19/25 20:01 Est Cr Clr Drug Dosing 79.3 ml/min 07/19/25 20: eGFR 80.51 07/19/25 20:01 BUN/Creatinine Ratio 15.9 (10-20) 07/19/25 20: Glucose 87 mg/dl (70-99(Fasting)) 07/19/25 20: Calcium 9.4 mg/dl (8.6-10.3) 07/19/25 20:01 Total Bilirubin 0.8 mg/dl (0.2-1.0) 07/19/25 20:01 AST 18 U/L (13-39) 07/19/25 20:01 ALT 17 U/L (7-52) 07/19/25 20: Alkaline Phosphatase 83 U/L (34-104) 07/19/25 20:01 Total Protein 7.7 gm/dl (6.0-8.3) 07/19/25 20:01 Albumin 4.0 gm/dl (3.4-5.0) 07/19/25 20:01 Globulin 3.7 gm/dl (2.5-4.0) 07/19/25 20:01 Albumin/Globulin Ratio 1.1 (0.9-2) 07/19/25 20:01 HCG, Qual Negative (Negative) 07/19/25 20:01 Adenovirus (PCR) Not Detected (NotDetected) 07/19/25 20:01 B. pertussis DNA (PCR) Not Detected (NotDetected) 07/19/25 20:01 B.parapertussis DNA PCR Not Detected (NotDetected) 07/19/25 20:01 C. pneumoniae DNA (PCR) Not Detected (NotDetected) 07/19/25 20:01 Coronavirus OC43 (PCR) Not Detected (NotDetected) 07/19/25 20:01 Coronavirus HKU1 (PCR) Not Detected (NotDetected) 07/19/25 20:01 Coronavirus 229E (PCR) Not Detected (NotDetected) 07/19/25 20:01 SARS-CoV-2 (PCR) Not Detected (NotDetected) 07/19/25 20:01 Coronavirus NL63 (PCR) Not Detected (NotDetected) 07/19/25 20:01 Human Metapneumovir PCR Not Detected (NotDetected) 07/19/25 20:01 Influenza Type A (PCR) Not Detected (NotDetected) 07/19/25 20:01 Influenza Type B (PCR) Not Detected (NotDetected) 07/19/25 20:01 M. pneumoniae (PCR) Not Detected (NotDetected) 07/19/25 20:01 Parainfluenza 1 (PCR) Not Detected (NotDetected) 07/19/25 20:01 Parainfluenza 2 (PCR) Not Detected (NotDetected) 07/19/25 20:01 Parainfluenza 3 (PCR) Not Detected (NotDetected) 07/19/25 20:01 Parainfluenza 4 (PCR) Not Detected (NotDetected) 07/19/25 20:01 RSV (PCR) Not Detected (NotDetected) 07/19/25 20:01 Entero/Rhino (PCR) Not Detected (NotDetected) 07/19/25 20:01 Group A Strep (PCR) DETECTED (NotDetected) A 07/19/25 19:46 Impressions Soft Tissue Neck CT 07/19/25 19:47 Exam(s): CT NECK SOFT TISSUE With Contrast IV Amt: 90 ml optiray 320 EXAM: CT Neck With Intravenous Contrast CLINICAL HISTORY: Reason for exam: right pain, possible abscess. TECHNIQUE: Axial computed tomography images of the neck with intravenous contrast. CTDI is 16.45 mGy and DLP is 371.44 mGy-cm. Automated exposure control was utilized for the study. A dose lowering technique was utilized adhering to the principles of ALARA. CONTRAST: Patient received 90 ml optiray 320 of IV contrast COMPARISON: No relevant prior studies available. FINDINGS: Oropharynx: Unremarkable. No significant tonsillar enlargement. No peritonsillar abscess. Hypopharynx: Unremarkable. Larynx: The epiglottis is within normal limits. There is mild edema involving the right aryepiglottic fold. Trachea: Unremarkable. Retropharyngeal space: Unremarkable. Submandibular/parotid glands: Unremarkable. Glands are normal in size. Thyroid: Unremarkable. No enlarged or calcified nodules. Bones/joints: No acute fracture. Soft tissues: There is an ill-defined 1.4 cm area of decreased density in the right parapharyngeal soft tissues consistent with phlegmon. No well-formed abscess is identified. Vasculature: No acute findings. Lymph nodes: Right level two lymph node measures 10 mm short axis diameter which is borderline enlarged. Lung apices: Unremarkable as visualized. IMPRESSION: There is an ill-defined 1.4 cm area of decreased density in the right parapharyngeal soft tissues consistent with phlegmon. No well-formed abscess is identified. Electronically signed by: Gus Torres MD 07/19/25 21:49 PM Code Status & VTE Plan Code Status Full code VTE Prophylaxis Plan VTE Prophylaxis will be ordered: Yes PG Care Time/CCT Total # of Minutes Spent Total Time Spent with Patient: Total time spent is greater than 50% in coordination of care (as documented) at patient's floor/unit and/or counseling patient: Coding Level of Care Code 84647 INT INP/OBS CARE MIN Diagnoses Peritonsillar abscess J36 Phlegmon L02.91 Elevated systolic blood pressure reading with diagnosis of hypertension I10
[2025-07-19] MEDS ORDERED: MoRPHine SULFATE 2 MG/ML CARP IV PRN (23:53)
[2025-07-19] MEDS ORDERED: ONDANSETRON INJ 2 MG/ML 2 ML VIAL IV PRN (23:53)
[2025-07-19] MEDS ORDERED: MoRPHine SULFATE 4 MG/ML 1 ML CARP\\VIAL IV PRN (23:53)
[2025-07-19] MEDS ORDERED: ACETAMINOPHEN 1000 MG/100 ML IV IV PRN (23:53)
[2025-07-20] MEDS: LACTATED RINGER'S 1,000 ML IV SCH (00:19)
[2025-07-20] MEDS: PANTOprazole 40 MG/10 ML SYR IV SCH (00:22)
[2025-07-20] MEDS: AMPICILLIN/SULBACTAM SOD 3,000 MG/100 ML BAG IV SCH (01:50)
[2025-07-20 04:16] LABS: Hematocrit (blood only) 37.7 % (37.0-47.0); Hemoglobin 12.3 g/dl (12.0-16.0); Mean Corpuscular Hemoglobin 31.2 pg (25.0-34.0); Mean Corpuscular Volume 95.7 fL (80.0-100.0); Platelet Count 310 K/uL (130-400); RDW Standard Deviation 42.8 fL (36.4-46.3); Red Blood Count 3.94 M/uL (4.20-5.40); White Blood Count 14.26 K/ul (4.8-10.8)
[2025-07-20 04:29] LABS: Alanine Aminotransferase 14.0 U/L (7-52); Albumin Globulin Ratio 1.3 (0.9-2); Albumin Level 4.0 gm/dl (3.4-5.0); Alkaline Phosphatase 72.0 U/L (34-104); Anion Gap 8.0 (3-11); Bilirubin,Total 0.9 mg/dl (0.2-1.0); Blood Urea Nitrogen 11.0 mg/dl (6-23); Calcium 9.3 mg/dl (8.6-10.3); Carbon Dioxide 29.0 mmol/L (21-32); Chloride 103.0 mmol/L (98-107); Creatinine Clr Calc Pharmacy 88.3 ml/min; Globulin 3.1 gm/dl (2.5-4.0); Glucose 142.0 mg/dl (70-99(Fasting)); Magnesium 2.2 mg/dl (1.7-2.4); Potassium 4.2 mmol/L (3.5-5.1); Sodium 140.0 mmol/L (136-145); Total Protein 7.1 gm/dl (6.0-8.3)
[2025-07-20 04:32] LABS: Immature Granulocytes # (auto) 0.45 K/uL (0.01-0.20); Immature Granulocytes % (auto) 3.2 %
--- NOTE | 2025-07-20 06:38 | Electrocardiogram Report ---
Test Reason : Blood Pressure : */* mmHG Vent. Rate : 106 BPM Atrial Rate : 106 BPM P-R Int : 136 ms QRS Dur : 78 ms QT Int : 326 ms P-R-T Axes : 73 12 52 degrees QTcB Int : 433 ms Sinus tachycardia Otherwise normal ECG When compared with ECG of 08-Oct-2018 13:43, Nonspecific T wave abnormality no longer evident in Inferior leads Nonspecific T wave abnormality no longer evident in Anterolateral leads Confirmed by oRdger Ellis ([id number]) on 07/20/2025 6:38:15 AM Referred By: Gigi Irizarry Confirmed By: Rodger Ellis
--- NOTE | 2025-07-20 06:47 | ENT Consultation ---
Date of Consultation July 20, 2025 Assessment & Plan (1) Peritonsillar abscess: (2) Strep pharyngitis: (3) Throat pain: Plan Rt peritonsillar phlegmon, on Unasyn / Decadron. Recommend continuing current regimen until more comfortable and tolerating po - I think she could likely go home this pm after another dose or two of the augmentin/decadron OR keep her overnight with same regimen and d/c in am. Discharge meds should include augmentin x 10-14 days and a medrol dosepak. She should consider a tonsillectomy long-term given the recurrent nature of the issue. We discussed that. She will togiak back. History of Present Illness Reason for Consultation: Rt parypharyngeal / peritonsillar phlegmon vs abscess Requesting Physician: Edie / Js Attending Physician: Wade Carlos MD, PhD History of Present Illness Hx - - cold and sore throat about a week ago - had been doing somewhat better, but then last evening she began to have worsening pain in her throat, in particular on the right side - more difficulty swallowing, including her secretions - rt otalgia as well - symptoms are similar to peritonsillar abscesses which she has had in the past, and she was concerned there may be a recurrence - respiratory bio fire test which primarily was group A strep positive - CT scan of the soft tissue of the neck showed a right sided parapharyngeal phlegmon 1.4 cm in size Afebrile upon admission but WBC elevated to 14.2 this am (was 13 yesterday pm) Given Unasyn which continues and decadron 10 mg in ED and then 6 mg BID IV Currently - improving. Able to swallow easier. Decadron was increased to 10 mg qid Allergies Allergy/AdvReac Type Severity Reaction Status Date / Time No Known Allergies Allergy Verified 06/17/25 13:01 Home Medications Medication Instructions Recorded Confirmed Type ergocalciferol (vitamin D2) 1,250 1,250 mcg PO QAM 04/22/20 07/19/25 History mcg (50,000 unit) capsule (Vitamin D2) calcium carbonate (Calcium 500) 500 mg PO QPM 03/10/21 07/19/25 History cyanocobalamin (vitamin B-12) 100 mcg IM DIRECTED 10/21/21 07/19/25 History 1,000 mcg/mL injection solution semaglutide (weight loss) 1.7 1.7 ml subcut WK 05/23/23 07/19/25 History mg/0.75 mL subcutaneous pen injector (Yumiko) valsartan 80 mg tablet 80 mg PO DAILY #90 tabs 12/24/24 07/19/25 Rx duloxetine 60 mg capsule,delayed 60 mg PO QAM #30 caps 05/13/25 07/19/25 Rx release Patient History Medical History Hyperlipidemia GERD (gastroesophageal reflux disease) Carpal tunnel syndrome Depression Slow to wake up after anesthesia Nausea and vomiting after administration of anesthetic agent History of COVID-19 Migraine Degenerative disc disease History of diverticulitis Anemia Hypertension Surgical History S/P panniculectomy Status following gastric banding surgery for weight loss History of esophagogastroduodenoscopy (EGD) History of ERCP History of anesthesia reaction S/P debridement Fusion of spine History of colonoscopy History of partial hysterectomy History of tooth extraction Jack teeth removed Hx of cholecystectomy Family History Mother Multiple gestation Heart disease Myocardial infarction Hypertension Lung cancer Sister Breast cancer Thyroid disorder Asthma Family history of reaction to anesthesia Father Hypertension Daughter Methicillin resistant Staphylococcus aureus infection as the cause of diseases classified elsewhere Aunt Ovarian cancer Breast cancer Denies family history of Prostate cancer Colorectal cancer Social History Smoking Status: Current some day smoker Tobacco Type: E-cigarettes / Vaping Age Started Using Tobacco: 20; Age Quit Using Tobacco: 43; packs per day: 1; Second Hand Exposure: No; Do You Dip or Chew Tobacco: No; Hx Alcohol Use: No Hx Substance Use: No Preferred Language: Spanish Communication Ability: Effective Visual Impairment: No Limitations Hearing Ability: Normal Body And Frame Man Required: No Beliefs That Will Affect Care: None marital status: Current Living Situation: Significant Other Current Living Situation Comment: LIVES WITH SPOUSE, 2 KIDS current occupational status: employed 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 Other Information That Helps Us Care for You: No Feels Safe at Home: Yes Safety Concerns: Feels Safe At This Time Childhood Exposure to Second-Hand Smoke: Yes caffeine: No during the past year weight has: remained stable Dental Care, Regularly: Yes Physical Activity Frequency: 3-4 Times per Week Seatbelt Use: always Sunscreen Use: Yes Assistive Devices: Glasses Review of Systems Ear, Nose, Mouth, Throat: + sore throat and + pain with swallowing ; no ear discharge, no facial pain, no sinus pain/pressure, no dental pain and no hoarseness Physical Exam Physical Exam: General: No acute distress, nonlabored respirations Face: normal facial motion Eyes: Extraocular motion is intact. Normal sclera and conjunctiva Ears: External auditory canals are clear. Tympanic membrane is intact and the middle ear is aerated bilaterally. Nose: no external deformity, nares patent. No rhinorrhea or epistaxis. Oral cavity: clear Oropharynx: swollen erythematous rt tonsil. No palatal edema/fluctuance. No uvular shift. No suspect or significant abscess of sufficient size to warrant I&D Neck: soft, no masses or lymphadenopathy Results & Data Vital Signs (Past 12 Hours) Vital Signs Temp Pulse Pulse Resp BP BP Pulse Ox 07/20/25 06:26 109 H 16 142/97 H 96 07/20/25 03:35 100 H 131/84 07/20/25 03:35 100 H 18 131/84 92 07/20/25 02:00 152/101 H 07/20/25 01:57 101 H 17 94 07/20/25 01:54 100 H 18 95 07/20/25 01:42 109 H 20 98 07/20/25 01:24 106 H 18 92 07/20/25 01:18 107 H 18 92 07/20/25 01:03 104 H 18 92 07/20/25 01:00 154/95 H 07/20/25 00:57 101 H 18 93 07/20/25 00:55 114 H 07/20/25 00:51 102 H 20 93 07/20/25 00:48 104 H 20 93 07/20/25 00:30 182/111 H 07/20/25 00:30 182/111 H 07/20/25 00:21 104 H 25 H 95 07/20/25 00:15 106 H 19 93 07/20/25 00:03 98 H 18 94 07/20/25 00:00 175/126 H 07/19/25 23:54 98 H 19 94 07/19/25 23:43 94 H 16 160/102 H 97 07/19/25 23:33 95 H 20 93 07/19/25 23:30 160/102 H 07/19/25 23:30 160/102 H 07/19/25 23:30 160/102 H 07/19/25 23:21 95 H 14 94 07/19/25 23:18 99 H 14 95 07/19/25 23:00 102 H 18 96 07/19/25 23:00 181/109 H 07/19/25 22:45 104 H 22 93 07/19/25 22:39 210/126 H 07/19/25 22:39 210/126 H 07/19/25 22:36 101 H 11 L 94 07/19/25 22:30 100 H 16 95 07/19/25 22:30 199/116 H 07/19/25 22:30 199/116 H 07/19/25 22:30 199/116 H 07/19/25 22:27 100 H 16 97 07/19/25 22:19 194/121 H 07/19/25 22:18 109 H 14 96 07/19/25 22:17 107 H 194/121 H 07/19/25 22:15 115 H 19 98 07/19/25 22:01 183/145 H 07/19/25 22:01 183/145 H 07/19/25 22:01 183/145 H 07/19/25 22:00 105 H 22 97 07/19/25 21:51 104 H 23 95 07/19/25 21:15 99 H 20 95 07/19/25 20:54 101 H 18 98 07/19/25 20:48 96 H 22 99 07/19/25 20:46 102 H 07/19/25 19:31 36.2 C L 118 H 16 216/123 H 98 O2 Del Method 07/20/25 06:26 Room Air 07/20/25 03:35 07/20/25 03:35 Room Air 07/20/25 02:00 07/20/25 01:57 07/20/25 01:54 07/20/25 01:42 07/20/25 01:24 07/20/25 01:18 07/20/25 01:03 07/20/25 01:00 07/20/25 00:57 07/20/25 00:55 07/20/25 00:51 07/20/25 00:48 07/20/25 00:30 07/20/25 00:30 07/20/25 00:21 07/20/25 00:15 07/20/25 00:03 07/20/25 00:00 07/19/25 23:54 07/19/25 23:43 Room Air 07/19/25 23:33 07/19/25 23:30 07/19/25 23:30 07/19/25 23:30 07/19/25 23:21 07/19/25 23:18 07/19/25 23:00 07/19/25 23:00 07/19/25 22:45 07/19/25 22:39 07/19/25 22:39 07/19/25 22:36 07/19/25 22:30 07/19/25 22:30 07/19/25 22:30 07/19/25 22:30 07/19/25 22:27 07/19/25 22:19 07/19/25 22:18 07/19/25 22:17 07/19/25 22:15 Room Air 07/19/25 22:01 07/19/25 22:01 07/19/25 22:01 07/19/25 22:00 07/19/25 21:51 07/19/25 21:15 07/19/25 20:54 07/19/25 20:48 07/19/25 20:46 07/19/25 19:31 Room Air Laboratory Results Laboratory Results - last 24 hr 07/19/25 07/19/25 07/20/25 19:46 20:01 04:01 WBC 13.10 H 14.26 H RBC 4.06 L 3.94 L Hgb 13.2 12.3 Hct 38.8 37.7 MCV 95.6 95.7 MCH 32.5 31.2 MCHC 34.0 32.6 RDW Std Deviation 42.1 42.8 RDW Coeff of Rosaura 11.9 12.1 Plt Count 322 310 MPV 8.8 L 8.9 L Immature Gran % (Auto) 2.2 3.2 Neut % (Auto) 79.3 91.5 Lymph % (Auto) 11.3 4.3 [place] % (Auto) 5.5 0.6 Eos % (Auto) 1.2 0.0 Baso % (Auto) 0.5 0.4 Neut # (Auto) 10.39 H 13.05 H Lymph # (Auto) 1.48 0.62 L [place] # (Auto) 0.72 H 0.09 L Eos # (Auto) 0.16 0.00 Baso # (Auto) 0.06 0.05 Immature Gran # (Auto) 0.29 H 0.45 H Sodium 139 140 Potassium 3.8 4.2 Chloride 100 103 Carbon Dioxide 30 29 Anion Gap 9 8 BUN 14 11 Creatinine 0.88 0.79 Est Cr Clr Drug Dosing 79.3 88.3 eGFR 80.51 91.64 BUN/Creatinine Ratio 15.9 13.9 Glucose 87 142 H Calcium 9.4 9.3 Magnesium 2.2 Total Bilirubin 0.8 0.9 AST 18 16 ALT 17 14 Alkaline Phosphatase 83 72 Total Protein 7.7 7.1 Albumin 4.0 4.0 Globulin 3.7 3.1 Albumin/Globulin Ratio 1.1 1.3 HCG, Qual Negative Adenovirus (PCR) Not Detected B. pertussis DNA (PCR) Not Detected B.parapertussis DNA PCR Not Detected C. pneumoniae DNA (PCR) Not Detected Coronavirus OC43 (PCR) Not Detected Coronavirus HKU1 (PCR) Not Detected Coronavirus 229E (PCR) Not Detected SARS-CoV-2 (PCR) Not Detected Coronavirus NL63 (PCR) Not Detected Human Metapneumovir PCR Not Detected Influenza Type A (PCR) Not Detected Influenza Type B (PCR) Not Detected M. pneumoniae (PCR) Not Detected Parainfluenza 1 (PCR) Not Detected Parainfluenza 2 (PCR) Not Detected Parainfluenza 3 (PCR) Not Detected Parainfluenza 4 (PCR) Not Detected RSV (PCR) Not Detected Entero/Rhino (PCR) Not Detected Group A Strep (PCR) DETECTED A Diagnostic Findings Soft Tissue Neck CT 07/19/25 19:47 Exam(s): CT NECK SOFT TISSUE With Contrast IV Amt: 90 ml optiray 320 EXAM: CT Neck With Intravenous Contrast CLINICAL HISTORY: Reason for exam: right pain, possible abscess. TECHNIQUE: Axial computed tomography images of the neck with intravenous contrast. CTDI is 16.45 mGy and DLP is 371.44 mGy-cm. Automated exposure control was utilized for the study. A dose lowering technique was utilized adhering to the principles of ALARA. CONTRAST: Patient received 90 ml optiray 320 of IV contrast COMPARISON: No relevant prior studies available. FINDINGS: Oropharynx: Unremarkable. No significant tonsillar enlargement. No peritonsillar abscess. Hypopharynx: Unremarkable. Larynx: The epiglottis is within normal limits. There is mild edema involving the right aryepiglottic fold. Trachea: Unremarkable. Retropharyngeal space: Unremarkable. Submandibular/parotid glands: Unremarkable. Glands are normal in size. Thyroid: Unremarkable. No enlarged or calcified nodules. Bones/joints: No acute fracture. Soft tissues: There is an ill-defined 1.4 cm area of decreased density in the right parapharyngeal soft tissues consistent with phlegmon. No well-formed abscess is identified. Vasculature: No acute findings. Lymph nodes: Right level two lymph node measures 10 mm short axis diameter which is borderline enlarged. Lung apices: Unremarkable as visualized. IMPRESSION: There is an ill-defined 1.4 cm area of decreased density in the right parapharyngeal soft tissues consistent with phlegmon. No well-formed abscess is identified. Electronically signed by: Gus Torres MD 07/19/25 21:49 PM PG Care Time/CCT Total # of Minutes Spent Total Time Spent with Patient: Total time spent is greater than 50% in coordination of care (as documented) at patient's floor/unit and/or counseling patient: Coding Level of Care Code 41340 IN/OBS CONSULT LVL 3,45M Diagnoses Peritonsillar abscess J36 Strep pharyngitis J02.0 Throat pain R07.0
[2025-07-20] MEDS: dexAMETHasone 10 MG in SYRINGE 0 ML IV SCH (07:52)
[2025-07-20] MEDS ORDERED: dexAMETHasone 6 MG in SYRINGE 0 ML IV SCH (08:00)
[2025-07-20] MEDS: VALSARTAN 80 MG TAB PO SCH (17:35)
[2025-07-20] MEDS: LACTATED RINGER'S 1,000 ML IV ONE (19:35)
--- NOTE | 2025-07-20 20:04 | Hospitalist Progress Note ---
Date of Service July 20, 2025 Assessment & Plan (1) Peritonsillar abscess: Plan: NO peritonsillar abscess noted on either 07/20/2025 physical exam or on 07/19/2025, 7:47pm CT neck with IV contrast. Instead, patient has an apparent group A streptococcal right parapharyngeal phlegmon. Patient remains afebrile and reports feeling 40% better today (07/20/2025) than yesterday (07/19/2025); the only thing(s) that "happened" to the patient in- between days was the administration of unasyn 3g IV x 4 doses (07/19/2025, 8:29pm; 07/20/2025, 1:50am, 7:55am, 2:25am) and dexamethasone 10mg IV qid x 3 doses (07/20/2025, 7:52am, 12:34pm, 5:36pm). Hence, I have opted to continue unasyn 3g IV q6 as this antibiotic will treat patient's apparent group A streptococcal right parapharyngeal phlegmon. I will check vitals, patient's throat, WBC w/diff, lactic acid, and pro calcitonin levels in the 07/21/2025 am with anticipated D/C home in the 07/21/2025 am with augmentin 875mg/125mg PO q12 x 10 days, dexamethasone 6mg PO daily x 10 days, and protonix 40mg PO daily x 10 days (to prophylax against steroid-associated gastritis, ulcer formation, and/or GI bleeding). (2) Phlegmon: Plan: See bullet #1 above. (3) Elevated systolic blood pressure reading with diagnosis of hypertension: Plan: HTN urgency without end-organ failure (e.g., no acute kidney injury is present on admission date 07/19/2025 or current date 07/20/2025): cf., BP 216/123 (07/19/2025, 7:31pm). cf., BP 183/145 (07/19/2025, 10:01pm). cf., BP 131/ 84 (07/20/2025, 3:35am). cf., BP 142/ 97 (07/20/2025, 6:26am). cf., BP 156/ 97 (07/20/2025, 8:00am). cf., BP 153/ 96 (07/20/2025, 1:58pm). cf., BP 165/111 (07/20/2025, 2:20pm). cf., BP 168/113 (07/20/2025, 3:33pm). cf., BP 168/113 (07/20/2025, 6:41pm). Etiology of HTN urgency is probably multi-factorial and includes contributions from: a. patient's chronic, essential HTN, for which patient concedes not taking/receiving her home-scheduled valsartan 80mg PO daily on current date 07/20/2025. b. patient's severe pain due to apparent group A streptococcal right parapharyngeal phlegmon. c. administration of dexamethasone 10mg IV qid x 3 doses (07/20/2025, 7:52am, 12:34pm, 5:36pm). d. patient's chronic depression / anxiety on home-scheduled duloxetine 60mg PO qam, for which patient concedes not taking/receiving her home-scheduled duloxet ine 60mg PO qam on current date 07/20/2025. e. administration of 1 liter of 0.9% NS @ 999 mL/hr (07/19/2025, 8:07pm), 1 liter of lactated Ringers @ 125 mL/hr (07/20/2025, 12:19am), and now lactated R ingers @ 999 mL/hr (07/20/2025, 7:35pm). To address HTN urgency, then, patient received ketorolac 15mg IV x 1 dose (07/19/2025, 8:10pm), tylenol 1000mg IV x 1 dose (07/19/2025, 8:30pm), labetalol 10mg IV x 1 dose (07/19/2025, 10:17pm), home-scheduled valsartan 80mg PO daily (07/19/2025, 10:23pm), hospital-ordered lorazepam 0.5mg IV x 2 doses (07/19/2025, 11:23pm; 07/20/2025, 2:35pm), home-scheduled valsartan 80mg PO daily (07/20/2025, 5:35pm), home-scheduled duloxetine 60mg PO daily (07/20/2025, 5:36pm), and metoprolol 5mg IV x 1 dose (07/20/2025, 7:15pm). Of note, patient's HTN urgency may persist despite the above pharmacologic interventions, if only because patient continues to receive and needs to receive dexamethasone 10mg IV qid (to mitigate right parapharyngeal swelling due to millie arent group A streptococcal right parapharyngeal phlegmon. Subsequently, I have opted to start patient on labetalol 10mg IV q6 prn systolic BP > 180 mm Hg or diastolic BP > 100 mm Hg (07/20/2025, 7:57pm). I have also opted to D/C lactated Ringers @ 999 mL/hr (07/20/2025, 7:35pm) as indiscriminate administration of IV fluids can lead to HTN urgency over time. I have also ordered lorazepam 1mg IV q4 prn anxiety to mitigate anxiety, and hopefully, indirectly, mitigate HTN urgency. Plan The patient is a 49-year-old female with past medical history including paresthesia of left upper extremity, cervical radiculopathy, myofascial pain, urinary tract infection, GERD, hypertension, lumbar degenerative disc disease, depression with anxiety, vitamin D deficiency, and status post gastric banding. The patient presents to the emergency department with report that she has not she had a cold and sore throat about a week ago. She had been doing somewhat better, but then last evening she began to have worsening pain in her throat, in particular on the right side, and had more difficulty swallowing, including her secretions. The symptoms are similar to peritonsillar abscesses which she has had in the past, and she is concerned there may be a recurrence. Workup in the emergency department included a respiratory bio fire test which primarily was group A strep positive. CT scan of the soft tissue of the neck showed a right sided parapharyngeal phlegmon 1.4 cm in size. From the ED the patient received normal saline 1 L bolus, Zofran 4 mg IV, Toradol 15 mg IV, Tylenol 1 g IV, dexamethasone 10 mg IV, Unasyn 3 g IV, labetalol 10 mg IV, and valsartan 80 mg x 1. Due to elevated blood pressure, and abnormal imaging as noted, patient was referred for evaluation for admission and treatment to the Health systemist service. Right peritonsillar/parapharyngeal abscess phlegmon/group A strep- Continue Unasyn 3 g IV every 6 hours begun in the ED NPO Given dexamethasone 10 mg IV in the ED continue 6 mg IV twice daily Zofran 4 mg IV every 6 hours as needed Pantoprazole 40 mg IV daily LR 125 mL/h x 1 L Tylenol 1 g IV every 8 hours as needed for mild pain or fever Morphine sulfate 2 mg IV every 3 hours as needed for moderate pain Morphine sulfate 4 mg IV every 3 hours as needed for severe pain ENT Dr. Canas has been contacted by the ED, and will see the patient in the a.m. Consult was placed Elevated blood pressure with a diagnosis of hypertension- Patient did not take her valsartan this morning Patient did receive labetalol 10 mg IV and valsartan 80 mg p.o. from the ED, without significant change in blood pressure readings Blood pressure increases likely secondary to anxiety, she admits to being an issue right now in ED Anxiety and depression- Give lorazepam 0.5 mg IV now, and if improved, will give lorazepam 0.5 mg IV every 8 hours as needed Hold duloxetine for now, until able to take p.o. Admission and Anticipated Discharge Date Admission Date: July 19, 2025 Subjective "I feel 40% better today (07/20/2025) than yesterday (07/19/2025) when I came to the ER. Yesterday (07/19/2025), my throat hurt so much on the right side, that swallowing water, anything, was hard. I didn't have any problem breathing with my sore throat. I got antibiotics yesterday, and they are working. I've had abscesses in the back side of my throat, on the right side, in the past, and I never had to have them drained. I just needed antibiotics. I spoke to the ENT Dr. Darryl Canas earlier today, before you came to see me, and he said that in the future, I may want to consider having my tonsils removed to avoid future sore throats. I'm thinking of doing that in the future after my sore throat gets better." Review of Systems Constitutional: Positive for sore throat. 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 Negative for antecedent/coincident fevers, chills, diaphoresis, cough, wheeze, hemoptysis, shortness of breath, dyspnea on exertion, chest pains, palpitations, pleurisy, nausea, vomiting, diarrhea, abdominal pain, pelvic pain, hematemesis, hematochezia, melena, hematuria, dysuria, frequency, urgency, headaches, dizziness, lightheadedness, visual changes, hearing changes, weakness, falls, syncope, trauma, travel history, sick contacts, or food/drug ingestions novel or new. All other review of systems are reported as negative by the patient on 2024. Physical Exam Constitutional: General: Comfortable, cooperative, coherent. Wide awake and alert. Not confused, lethargic, or obtunded. Patient speaks in complete, fluent, and articulate sentences without pause, interruption, cough, or wheeze. HEENT: Normocephalic, atraumatic. Extra-ocular muscles intact. Pupils equally round and reactive to light. No nystagmus, gaze paresis, anisocoria, miosis, mydriasis, hyphema, chemosis, scleral injection, conjunctivitis, or pterygium. No otorrhea or rhinorrhea. No pharyngeal discharge or exudate. No enanthem. No vesicular lesion(s) on uvula or palate. No fissuring of tongue, no strawberry red appearance of tongue. No macroglossia. No peritonsillar lymphadenopathy. Neck: Supple, no stridor or bruit. Jugular venous pressure is estimated to be 3 cm above the sternal angle of Noah, which is, by definition, 5 cm above the level of the right atrium. Hence, jugular venous pressure of 8 cm is not elevated on 07/21/2025. Lymphatics: No anterior/posterior cervical, infraclavicular, supraclavicular, axillary, epitrochlear, or inguinal adenopathy. Chest: Symmetric rise and fall with respirations. Non-tender to palpation. Lungs: Clear to auscultation and percussion. No audible expiratory wheeze, egophony, pectoriloquy, increase in tactile fremitus, or flatness/dullness to percussion at the bases. Heart: Regular rate and rhythm. S1 and S2 noted. No S3 or S4 summation gallop. No tripartite friction rub. Grade II/ early systolic murmur at left lower sternal border without radiation to the carotids, axilla, or back, and which remains invariant in regards to the respiratory cycle. Abdomen: Soft, non-tender, non-distended. No rebound, guarding, Laguerre's sign, or organomegaly. Bowel sounds auscultated in all 4 quadrants. Extremities: No clubbing, cyanosis, or edema. 2+ pedal pulses bilaterally. Skin: No decubitus ulcer, exanthem, or enanthem. Urology: No juarez catheter. No purewick. No urethral discharge. Neurology: Alert and oriented in regards to person, place, time, and situation. DTR+. 5/5 motor strength in all 4 extremities, both proximally and distally. Psychiatry: No flat affect. No monotone voice. Smiles appropriately. Results & Data Results & Data Vital Signs (Past 12 Hours) Vital Signs Pulse Pulse Resp BP BP Pulse Ox O2 Del Method 07/20/25 18:41 118 H 07/20/25 15:33 168/113 H 07/20/25 14:20 110 H 20 165/111 H 190/98 H 95 Room Air 07/20/25 13:58 114 H 17 153/96 H 94 Room Air 07/20/25 08:00 112 H 16 156/97 H 97 Room Air Laboratory Results WBC 13.10, N79 L11 M6 E1, Hb 13.2, MCV 95.6, MCHC 34.0, platelet 322 (07/19/2025 , 8:01pm). WBC 14.26, N92 L 4 M1, Hb 12.3, MCV 95.7, MCHC 32.6, platelet 310 (07/20/2025, 4:01am). Group A Strep PCR+ (07/19/2025, 7:46pm). Lactate 1.1 mmol/L (07/20/2025, 8:01am). Procalcitonin < 0.02 ng/mL (07/20/2025, 8:01am). BUN/data coder operator 14/0.88 (07/19/2025, 8:01pm). BUN/data coder operator 11/0.79 (07/20/2025, 4:01am). Diagnostic Findings CT neck with IV contrast (07/19/2025, 7:47pm): 1. Ill-defined 1.4 cm area of decreased density in the right parapharyngeal soft tissues consistent with phlegmon. 2. No well-formed abscess is identified. PG Care Time/CCT Total # of Minutes Spent Total Time Spent with Patient: Total time spent is greater than 50% in coordination of care (as documented) at patient's floor/unit and/or counseling patient: Coding Level of Care Code 22235 SUB INP/OBS CARE 2/35MIN Diagnoses Peritonsillar abscess J36 Phlegmon L02.91 Elevated systolic blood pressure reading with diagnosis of hypertension I10
[2025-07-20] MEDS: METOPROLOL TARTRATE 1 MG/ML VIAL IV STA (20:34)
[2025-07-20] MEDS: LABETALOL HCL IV 5 MG/ML 20ML IV PRN (20:37)
[2025-07-21 06:55] LABS: Hematocrit (blood only) 36.6 % (37.0-47.0); Hemoglobin 11.9 g/dl (12.0-16.0); Mean Corpuscular Hemoglobin 30.9 pg (25.0-34.0); Mean Corpuscular Volume 95.1 fL (80.0-100.0); Platelet Count 333 K/uL (130-400); RDW Standard Deviation 41.3 fL (36.4-46.3); Red Blood Count 3.85 M/uL (4.20-5.40); White Blood Count 24.73 K/ul (4.8-10.8)
[2025-07-21 07:31] LABS: Acanthocytes 1+; Alanine Aminotransferase 10.0 U/L (7-52); Albumin Globulin Ratio 1.3 (0.9-2); Albumin Level 3.7 gm/dl (3.4-5.0); Alkaline Phosphatase 60.0 U/L (34-104); Anion Gap 7.0 (3-11); Bilirubin,Total 0.6 mg/dl (0.2-1.0); Blood Urea Nitrogen 15.0 mg/dl (6-23); Calcium 9.3 mg/dl (8.6-10.3); Carbon Dioxide 28.0 mmol/L (21-32); Chloride 104.0 mmol/L (98-107); Creatinine Clr Calc Pharmacy 95.1 ml/min; Globulin 2.9 gm/dl (2.5-4.0); Glucose 143.0 mg/dl (70-99(Fasting)); Immature Granulocytes # (auto) 0.74 K/uL (0.01-0.20); Immature Granulocytes % (auto) 3.0 %; Magnesium 2.0 mg/dl (1.7-2.4); Polychromasia 1+; Potassium 4.4 mmol/L (3.5-5.1); Sodium 139.0 mmol/L (136-145); Total Protein 6.6 gm/dl (6.0-8.3)
[2025-07-21] MEDS ORDERED: LORazepam Inj 0.5 MG in SYRINGE 0.25 ML IV PRN (09:19)
[2025-07-21 12:00] VITALS: PULSE 105; RESP 19; TEMP 98.4; O2SAT 94
[2025-07-21 13:53] VITALS: BP 157/97
--- NOTE | 2025-07-21 17:32 | Discharge Summary ---
Discharge Summary Date of Service July 21, 2025 Principal Dx & Hospital Course #1 = Principal Diagnosis (1) Peritonsillar abscess: NO peritonsillar abscess noted on either 07/20/2025 physical exam or on 07/19/2025, 7:47pm CT neck with IV contrast. Instead, patient has an apparent group A streptococcal right parapharyngeal phlegmon. Patient remains afebrile and reports feeling 40% better today (07/20/2025) than yesterday (07/19/2025); the only thing(s) that "happened" to the patient in- between days was the administration of unasyn 3g IV x 4 doses (07/19/2025, 8:29pm; 07/20/2025, 1:50am, 7:55am, 2:25am) and dexamethasone 10mg IV qid x 3 doses (07/20/2025, 7:52am, 12:34pm, 5:36pm). Hence, I opted to continue unasyn 3g IV q6 as this antibiotic will treat patient's apparent group A streptococcal right parapharyngeal phlegmon. Patient subsequently reports feeling "80% better today (07/21/2025) than yesterday (07/20/2025); I can eat solid food and drink all liquids fine now. No fevers or chills. The right side in the back of my throat doesn't hurt." Patient subsequently was discharged back to her home on 07/21/2025 with an electronic prescription for augmentin 875mg/125mg PO q12, #20 tablets, no refills, transmitted to her [id number], [address] [place] [address], on 07/21/2025, prior to hospital discharge back to her home on 07/21/2025. Patient subsequently was discharged back to her home on 07/21/2025 with electronic prescriptions for dexamethasone 6mg PO daily, #3 tablets (07/22/2025 - 07/24/2025), no refills, and protonix 40mg PO daily (to prophylax against steroid-associated gastritis, ulcer formation, and/or GI bleeding), #3 tablets (07/22/2025 - 07/24/2025), no refills, transmitted to her [facility] store [id number], [address] [place] [address], on 07/21/2025, prior to hospital discharge back to her home on 07/21/2025. Patient was also advised to follow up with her ENT Dr. Darryl Canas in the next 30 days to discuss outpatient/elective tonsillectomy; patient reports that she already has made such outpatient/elective tonsillectomy her top priority after hospital discharge back to her home on 07/21/2025. (2) Phlegmon: See bullet #1 above. (3) Elevated systolic blood pressure reading with diagnosis of hypertension: HTN urgency without end-organ failure (e.g., no acute kidney injury is present on admission date 07/19/2025 or current date 07/20/2025): cf., BP 216/123 (07/19/2025, 7:31pm). cf., BP 183/145 (07/19/2025, 10:01pm). cf., BP 131/ 84 (07/20/2025, 3:35am). cf., BP 142/ 97 (07/20/2025, 6:26am). cf., BP 156/ 97 (07/20/2025, 8:00am). cf., BP 153/ 96 (07/20/2025, 1:58pm). cf., BP 165/111 (07/20/2025, 2:20pm). cf., BP 168/113 (07/20/2025, 3:33pm). cf., BP 168/113 (07/20/2025, 6:41pm). Etiology of HTN urgency is probably multi-factorial and includes contributions from: a. patient's chronic, essential HTN, for which patient concedes not taking/receiving her home-scheduled valsartan 80mg PO daily on current date 07/20/2025. b. patient's severe pain due to apparent group A streptococcal right parapharyngeal phlegmon. c. administration of dexamethasone 10mg IV qid x 3 doses (07/20/2025, 7:52am, 12:34pm, 5:36pm). d. patient's chronic depression / anxiety on home-scheduled duloxetine 60mg PO qam, for which patient concedes not taking/receiving her home-scheduled duloxetine 60mg PO qam on current date 07/20/2025. e. administration of 1 liter of 0.9% NS @ 999 mL/hr (07/19/2025, 8:07pm), 1 liter of lactated Ringers @ 125 mL/hr (07/20/2025, 12:19am), and now lactated Ringers @ 999 mL/hr (07/20/2025, 7:35pm). To address HTN urgency, then, patient received ketorolac 15mg IV x 1 dose (07/19/2025, 8:10pm), tylenol 1000mg IV x 1 dose (07/19/2025, 8:30pm), labetalol 10mg IV x 1 dose (07/19/2025, 10:17pm), home-scheduled valsartan 80mg PO daily (07/19/2025, 10:23pm), hospital-ordered lorazepam 0.5mg IV x 2 doses (07/19/2025, 11:23pm; 07/20/2025, 2:35pm), home-scheduled valsartan 80mg PO daily (07/20/2025, 5:35pm), home-scheduled duloxetine 60mg PO daily (07/20/2025, 5:36pm), and metoprolol 5mg IV x 1 dose (07/20/2025, 7:15pm). Of note, patient's HTN urgency persisted despite the above pharmacologic interventions, if only because patient continued to receive and needed to receive dexamethasone 10mg IV qid (to mitigate right parapharyngeal swelling due to apparent group A streptococcal right parapharyngeal phlegmon. Subsequently, I opted to start patient on labetalol 10mg IV q6 prn systolic BP > 180 mm Hg or diastolic BP > 100 mm Hg (07/20/2025, 7:57pm). I also opted to D/C lactated Ringers @ 999 mL/hr (07/20/2025, 7:35pm) as indiscriminate administration of IV fluids can lead to HTN urgency over time. I also ordered lorazepam 1mg IV q4 prn anxiety to mitigate anxiety, and hopefully, indirectly, mitigate HTN u rgency. Subsequently, patient's BP remained elevated, consistent with HTN urgency: cf., BP 177/101 (07/20/2025, 10:00pm). cf., BP 177/116 (07/21/2025, 2:59am). cf., BP 177/116 (07/21/2025, 4:38am). cf., BP 157/ 97 (07/21/2025, 7:46am). cf., BP 161/ 97 (07/21/2025, 11:58am). cf., BP 157/ 97 (07/21/2025, 1:52pm). Subsequently, patient remained asymptomatic throughout hospitalization in regards to her persistently elevated BP. Subsequently, patient was discharged back to her home on 07/21/2025 on her home- scheduled valsartan 80mg PO daily. Subsequently, patient was discharged back to her home on 07/21/2025 with an electronic prescription for dexamethasone 6mg PO daily, #3 tablets (07/22/2025 - 07/24/2025), no refills, transmitted to her [facility] store [id number], [address] [place] [address], on 07/21/2025, prior to hospital discharge back to her home on 07/21/2025. I surmise that patient's BP will improve AFTER patient is discharged back to her home on 07/21/2025, and even more so, AFTER patient is no longer taking dexamethason 6mg PO daily, #3 tablets (07/22/2025 - 07/24/2025). Patient concurs. Plan The patient is a 49-year-old female with past medical history including paresthesia of left upper extremity, cervical radiculopathy, myofascial pain, urinary tract infection, GERD, hypertension, lumbar degenerative disc disease, depression with anxiety, vitamin D deficiency, and status post gastric banding. The patient presents to the emergency department with report that she has not she had a cold and sore throat about a week ago. She had been doing somewhat better, but then last evening she began to have worsening pain in her throat, in particular on the right side, and had more difficulty swallowing, including her secretions. The symptoms are similar to peritonsillar abscesses which she has had in the past, and she is concerned there may be a recurrence. Workup in the emergency department included a respiratory bio fire test which primarily was group A strep positive. CT scan of the soft tissue of the neck showed a right sided parapharyngeal phlegmon 1.4 cm in size. From the ED the patient received normal saline 1 L bolus, Zofran 4 mg IV, Toradol 15 mg IV, Tylenol 1 g IV, dexamethasone 10 mg IV, Unasyn 3 g IV, labetalol 10 mg IV, and valsartan 80 mg x 1. Due to elevated blood pressure, and abnormal imaging as noted, patient was referred for evaluation for admission and treatment to the [facility]. Right peritonsillar/parapharyngeal abscess phlegmon/group A strep- Continue Unasyn 3 g IV every 6 hours begun in the ED NPO Given dexamethasone 10 mg IV in the ED continue 6 mg IV twice daily Zofran 4 mg IV every 6 hours as needed Pantoprazole 40 mg IV daily LR 125 mL/h x 1 L Tylenol 1 g IV every 8 hours as needed for mild pain or fever Morphine sulfate 2 mg IV every 3 hours as needed for moderate pain Morphine sulfate 4 mg IV every 3 hours as needed for severe pain ENT Dr. Canas has been contacted by the ED, and will see the patient in the a.m. Consult was placed Elevated blood pressure with a diagnosis of hypertension- Patient did not take her valsartan this morning Patient did receive labetalol 10 mg IV and valsartan 80 mg p.o. from the ED, without significant change in blood pressure readings Blood pressure increases likely secondary to anxiety, she admits to being an issue right now in ED Anxiety and depression- Give lorazepam 0.5 mg IV now, and if improved, will give lorazepam 0.5 mg IV every 8 hours as needed Hold duloxetine for now, until able to take p.o. Admission HPI Per Admitting Provider The patient is a 49-year-old female with past medical history including paresthesia of left upper extremity, cervical radiculopathy, myofascial pain, urinary tract infection, GERD, hypertension, lumbar degenerative disc disease, depression with anxiety, vitamin D deficiency, and status post gastric banding. The patient presents to the emergency department with report that she has not she had a cold and sore throat about a week ago. She had been doing somewhat better, but then last evening she began to have worsening pain in her throat, in particular on the right side, and had more difficulty swallowing, including her secretions. The symptoms are similar to peritonsillar abscesses which she has had in the past, and she is concerned there may be a recurrence. Workup in the emergency department included a respiratory bio fire test which primarily was group A strep positive. CT scan of the soft tissue of the neck showed a right sided parapharyngeal phlegmon 1.4 cm in size. From the ED the patient received normal saline 1 L bolus, Zofran 4 mg IV, Toradol 15 mg IV, Tylenol 1 g IV, dexamethasone 10 mg IV, Unasyn 3 g IV, labetalol 10 mg IV, and valsartan 80 mg x 1. Due to elevated blood pressure, and abnormal imaging as noted, patient was referred for evaluation for admission and treatment to the [facility]. Discharge Exam Constitutional General: Comfortable, cooperative, coherent. Wide awake and alert. Not confused, lethargic, or obtunded. Patient speaks in complete, fluent, and articulate sentences without pause, interruption, cough, or wheeze. HEENT: Normocephalic, atraumatic. Extra-ocular muscles intact. Pupils equally round and reactive to light. No nystagmus, gaze paresis, anisocoria, miosis, mydriasis, hyphema, chemosis, scleral injection, conjunctivitis, or pterygium. No otorrhea or rhinorrhea. No pharyngeal discharge or exudate. No enanthem. No vesicular lesion(s) on uvula or palate. No fissuring of tongue, no strawberry red appearance of tongue. No macroglossia. No peritonsillar lymphadenopathy. Neck: Supple, no stridor or bruit. Jugular venous pressure is estimated to be 3 cm above the sternal angle of Noah, which is, by definition, 5 cm above the level of the right atrium. Hence, jugular venous pressure of 8 cm is not elevated on discharge date 07/21/2025. Lymphatics: No anterior/posterior cervical, infraclavicular, supraclavicular, axillary, epitrochlear, or inguinal adenopathy. Chest: Symmetric rise and fall with respirations. Non-tender to palpation. Lungs: Clear to auscultation and percussion. No audible expiratory wheeze, egophony, pectoriloquy, increase in tactile fremitus, or flatness/dullness to percussion at the bases. Heart: Regular rate and rhythm. S1 and S2 noted. No S3 or S4 summation gallop. No tripartite friction rub. Grade II/ early systolic murmur at left lower sternal border without radiation to the carotids, axilla, or back, and which remains invariant in regards to the respiratory cycle. Abdomen: Soft, non-tender, non-distended. No rebound, guarding, Laguerre's sign, or organomegaly. Bowel sounds auscultated in all 4 quadrants. Extremities: No clubbing, cyanosis, or edema. 2+ pedal pulses bilaterally. Skin: No decubitus ulcer, exanthem, or enanthem. Urology: No juarez catheter. No purewick. No urethral discharge. Neurology: Alert and oriented in regards to person, place, time, and situation. DTR+. 5/5 motor strength in all 4 extremities, both proximally and distally. Psychiatry: No flat affect. No monotone voice. Smiles appropriately. Discharge Plan Discharge Items Patient Disposition: Home - Self-Care Reason For Visit: PARAPHARYNGEAL PHLEGMON Discharge Diagnosis: 1. Acute right parapharyngeal phlegmon, NOT abscess. 2. Chronic HTN. Condition on Discharge: Fair Activity: Resume your previous activity Lifting: Gradually increase as tolerated Bathing: No limitations Exercise/Sports: Gradually increase as tolerated Driving/Machine Use: No limitations Weightbearing: Full weightbearing Non-emergency contact: Primary Care Provider Call non-emergency contact if: you have any medication questions Follow-up/Referrals: Rox Partida CRNP [Primary Care Provider] - 07/24/25 2:00 pm (Hospital follow up on July 24 at 2 pm.) Darryl Canas MD [Physician] - (See Dr. Canas in 5-7 days to arrange for outpatient/elective tonsillectomy.) Diet: Heart Healthy Addtl Attending Provider Instructions: See your PCP KRIS Pressley, within 5-7 days of hospital discharge. Pending Studies at Discharge: No Stand-Alone Forms: [facility], Smoking Cessation Medications and DC Order Prescriptions: New amoxicillin-pot clavulanate 875-125 mg tablet 1 tab PO Q12H Qty: 20 0RF dexamethasone 6 mg tablet 6 mg PO DAILY Qty: 3 0RF pantoprazole [Protonix] 40 mg tablet,delayed release (DR/EC) 40 mg PO DAILY Qty: 3 0RF Continued duloxetine 60 mg capsule,delayed release(DR/EC) 60 mg PO QAM Qty: 30 5RF Wegovy 1.7 mg/0.75 mL pen injector 1.7 ml subcut WK Rx Instructions: monday calcium carbonate [Calcium 500] 500 mg calcium (1,250 mg) tablet 500 mg PO QPM Hold Instructions: SURGERY valsartan 80 mg tablet 80 mg PO DAILY Qty: 90 3RF ergocalciferol (vitamin D2) [Vitamin D2] 1,250 mcg (50,000 unit) Capsule 1,250 mcg PO QAM Hold Instructions: SURGERY cyanocobalamin (vitamin B-12) 1,000 mcg/mL Solution 100 mcg IM DIRECTED Hold Instructions: SURGERY Rx Instructions: every 3 months Discharge Orders: Discharge Order (Routine); Ordered 07/21/25 Ordered By: Wade Carlos Admission Data Admit Date/Time: 07/19/25 23:10 Attending Provider: Wade Carlos Admit Provider: Satish Weinstein Primary Care Provider: Rox Partida Other Providers: Satish Weinstein; Darryl Canas Other Interventions: Discharge Summary Assessment (RN) Last Done: 07/21/25 13:52 Hospital Stay Data Consultations 07/19/25 22:05 ED Decision to Admit Stat 07/19/25 23:10 Consult Otolaryngology (Head and Neck) Routine Diagnostic Imagining Performed 07/19/25 19:47 CT soft tissue neck w con Stat Pending Results Patient Have Any Pending Studies at Discharge: No Discharge Instructions Given to Patient (Per Discharging Provider) See your PCP KRIS Pressley, within 5-7 days of hospital discharge. Total Time Total Time Spent Total Time Spent (In Minutes): 35 minutes. Of this time period, 19 minutes were spent in coordinating patient's discharge. Coding Level of Care Code 18643 INP/OBS DISCH >30 MIN Diagnoses Peritonsillar abscess J36 Phlegmon L02.91 Elevated systolic blood pressure reading with diagnosis of hypertension I10
== END 2025-07-21 14:31 | disposition home or self-care (01) ==
LOC: ED 19:29 → EDINP 19:29 → SUATTDRO 23:10 → 2S 23:54